=== PATIENT | female | born 1995 | race Caucasian/White ===

== ENCOUNTER 2019-08-27 11:40 | Outpatient (CLI) | payer MEDICAID, SELFPAY ==
--- NOTE | 2019-08-27 12:22 | US_ITS ---
WS: [id number] ULTRASOUND OB LIMITED TECHNIQUE: Limited ultrasound examination of the fetus. CLINICAL INFORMATION: GROWTH CHECK COMPARISON: None. FINDINGS: Cervix 5.0 cm Single interuterine gestation. Placental location is anterior. Placenta grade: 1 heart rate 141 BPM. Anatomy: BDP: 9.5 cm = 38w5d HC: 33.9 cm = 38w6d AC: 34.9 cm = 38w6d FEMUR LENGTH: 7.6 cm = 38w6d Estimated weight: 3603 g EGA by ultrasound: 38w6d KEV by ultrasound: 09/04/2019 US/US OB limited [id number] IMPRESSION: 1. Single intrauterine gestation. 2. Normal growth parameters. 3. weight at the 86th percentile. 4. Cervix measures 5.0 cm and is closed. 5. Normal amniotic fluid volume.
== END 2019-08-27 11:41 | disposition home or self-care (01) ==
LOC: RAD 11:44
PROVIDERS: Family Provider Family Medicine; PCP Family Medicine; Visit Provider Family Medicine
DX: O26.03 Excessive weight gain in pregnancy, third trimester (principal)
CPT/HCPCS: 76815

== ENCOUNTER 2019-09-03 18:00 | Inpatient (IN) | payer MEDICAID, SELFPAY ==
[2019-09-03] VITALS (57 sets, daily range): BP systolic 0–166; BP diastolic 0–94; PULSE 68–109; RESP 16; TEMP 36.7–37.2; O2SAT 98–100; BMI 30.7
[2019-09-03 18:49] LABS: Basophils # 0.1 10^3/uL (0.0-0.1); Basophils % 0.4 %; Eosinophils # 0.1 10^3/uL (0.0-0.8); Eosinophils % 0.6 %; Hematocrit 34.9 % (37.0-47.0); Hemoglobin 10.9 g/dL (11.5-15.3); Lymphocytes # 1.8 10^3/uL (0.8-4.8); Lymphocytes % 13.4 %; Mean Corpuscular HGB Conc 31.2 g/dL (30.0-36.0); Mean Corpuscular Hemoglobin 25.9 pg (28.0-34.0); Mean Corpuscular Volume 82.9 fL (81-99); Mean Platelet Volume 11.6 fL (7.4-10.4); Monocytes # 1.2 10^3/uL (0.2-0.9); Monocytes % 8.9 %; Neutrophils # 10.3 10^3/uL (1.8-7.7); Neutrophils % 75.3 %; Nucleated Red Blood Cells % 0 %; Platelet Count 362 10^3/cmm (130-400); Red Blood Count 4.21 10^6/uL (4.1-5.3); Red Cell Distribution Width 14.9 % (12.1-15.1); White Blood Count 13.6 10^3/uL (4.0-10.0)
[2019-09-03] MEDS: dextrose 5%-lactated ringers 1,000 ML 125 ML IV (19:00)
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
[2019-09-03] MEDS: acetaminophen 325 mg Tablet 650 MG PO (20:42)
[2019-09-03] MEDS: lactated ringers 1,000 ML 999 ML IV (20:43)
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
--- NOTE | 2019-09-03 21:36 | ANES.PROC ---
Anesthesia Procedures Procedure/Date: 09/03/19 Epidural: Time Out Performed: Yes Consents Signed: Procedure Consent, NPO Consent and No Consent Needed Consent: requested by attending/covering physician, from patient, risks and benefits reviewed and patient agrees to proceed Lumbar Level: L3-L4 Epidural position: sitting Epidural procedure: sterile prep of area (betadine), 1% lidocaine to numb the area (3ml), 18 g needle, neg for paresthesia, test dose given, 1.5% xylocaine 1:200k epi (5ml), 0.2% Ropivacaine bolus ml (5ml), placed PCEA, no systemic response, sterile dressing applied, L.U.D. no apparent complications and 0.2% Ropiavacaine @ mls/hr (10ml/hr) Additional Comments: Pt resting comfortably
[2019-09-03] MEDS: oxytocin 30 UNIT/500 ML BAG IV (22:57)
[2019-09-04] VITALS (126 sets, daily range): BP systolic 0–151; BP diastolic 0–91; PULSE 75–124; RESP 14–17; TEMP 36.6–37.1; O2SAT 98–100
[2019-09-04] MEDS: dextrose 5%-lactated ringers 1,000 ML 125 ML IV ×2 (05:36→11:15)
[2019-09-04] MEDS: ampicillin 2,000 MG in sodium chloride 0.9% (plus) 50 ML 100 MG IV (10:28)
--- NOTE | 2019-09-04 11:33 | PC.NURSE ---
Pushing While pushing it was noted that baby appears to be OP presentation, discussed with mother about trying different position changes with the peanut ball to help baby rotate and allow for easier pushing. Mother verbalized understanding.
--- NOTE | 2019-09-04 11:39 | PM.OBGYPN ---
POWER PLANT INSPECTOR Subjective Subjective: Interval history: Patient received her epidural last night and became comfortable...we began pitocin augmentation of her labor as she was still at 3cm and 50% effaced. She rested throughout the night and states that she is feeling some pressure this morning. Labor: Station: -2 Amniotic Membrane Status: Leaking Monitor Mode: External Contraction Pattern: Regular Status: Category l Vitals/I&O/Wt Last Vital Signs Temp 98.4 F 09/04/19 09:45 Pulse 86 09/04/19 11:35 Resp 15 09/04/19 03:00 BP 116/67 09/04/19 11:35 Pulse Ox 98 09/03/19 22:00 09/03/19 09/04/19 09/04/19 22:59 06:59 14:59 Intake Total 1000 / 1000 762.416 / 762.416 Balance 1000 / 1000 762.416 / 762.416 Weight last 48 hrs Weight 179 lb Physical Exam Narrative: EXAM NARRATIVE: FHT tracing is category 1 with normal baseline, moderate variability, accelerations and no decelerations. Contractions are every 2 minutes lasting upwards of 40-60 seconds. She is currently on 15 mu/minute of pitocin. Const: COMMON NORMALS: no apparent distress, oriented x3, healthy appearing, alert and well nourished : MANUAL OB EXAM: dilated (4.5), effaced (90%), station (-3) and other (palpable forebag) Neuro: COMMON NORMALS: oriented x3 SENSORIUM/ORIENTATION: Yes alert Data : 09/03/19 18:30 A&P Assessment and plan (1) Rupture of membranes with meconium present: amniotomy was performed on the forebag, and it was productive of a small amount of meconium stained fluid...within a few hours I called the labor room to begin antibiotics for prolonged rupture of membranes, and patient was 5-6cm dilated Status: Acute (2) SPROM (prolonged spontaneous rupture of membranes): starting prophylactic antibiotics...she remains afebrile Status: Acute Attestations Medical Necessity Statement*: as patient is laboring and has ruptured membranes, she continues to need inpatient hospitalization Coding Level of Care Code Acute Bilingual Spanish Inbound Sales for [facility] Diagnoses Rupture of membranes with meconium present O77.0 SPROM (prolonged spontaneous rupture of membranes) O42.90
[2019-09-04] MEDS: miSOPROStol 200 mcg Tablet 800 MCG PR (14:59)
[2019-09-04] MEDS: lidocaine 2% INJ 20 mL INJECTION (15:00)
--- NOTE | 2019-09-04 15:53 | PM.DELIVERY ---
 Delivery Note: Date of delivery: September 04, 2019 Pre-Delivery Course: Patient arrived yesterday late afternoon after having had her visit in the office during which time she reported spontaneous rupture of membranes productive of clear fluid at home at 130 yesterday afternoon. She underwent sterile speculum examination in the office at approximately 4:45 PM and had gross evidence of rupture of membranes and was 3 cm dilated, 20% effaced -3 station and candy every 2 minutes. She was sent to the labor room where we monitored her contractions and rechecked her cervix. Although she had been candy every 2 minutes with increasing intensity, her cervix had not changed by that evening. She opted for an epidural, received it and became comfortable. Therefore, we began Pitocin augmentation of her labor. This morning she was 4-1/2 cm dilated and 50% effaced and -3 station but had a palpable fore bag which was pretty sizable. She underwent amniotomy of the fore bag, and we discovered meconium stained fluid. Patient then was dilated to 5 to 6 cm within a few hours. We had begun antibiotics secondary to the prolonged rupture of membranes. She been dilated to complete at 11 AM. She tried a few practice pushes at 1107, and baby was thought to be occiput posterior at that time, and so we abandoned pushing and opted to have her labor down for a while. She tried a couple of position changes, and we resumed pushing at 1309. Delivery: Patient made steady progress from 1309 forward and delivered a viable male at 1437. Head was straight OA. Bulb suctioning was done upon delivery of baby's head, and nuchal cord was noted but upon delivery of baby's head he shot out exclusively. Therefore, his double nuchal cord was manually reduced upon delivery of his body. He also had bulb suctioning done upon delivery of his body and was rapidly placed on maternal abdomen while cord was clamped by myself and cut by myself. Baby was then taken to the warmer for further resuscitative measures. Gentle traction was placed on the cord, and intravenous Pitocin was begun in routine doses what retrospectively was just a free few minutes prior to delivery of the placenta. The placenta delivered at 1451 and appeared intact and was meconium stained. A gush of blood was then noted from the vaginal canal. Upon rapid inspection there was a distal midline posterior vaginal laceration which involved a blood vessel which was quickly clamped and then repair was done with 2-0 chromic in single layer fashion. Part way through that repair there was another gush of blood. A uterine exploration was done which revealed a boggy lower uterine segment and several large clots which were readily manually extracted. Fundus was firm and underwent routine massage and checks. Patient had by that time been given Cytotec 800 mcg rectally. Upon further inspection of the perineum and cervix there was noted a left superficial labial laceration/deep abrasion which was hemodynamically stable and anatomically well approximated and did not require repair. Patient did have some bruising of the distal vaginal kent and had vulvar swelling. Post-Delivery Status: Baby had Apgars of 4 at 1 minute and 8 at 5 minutes and required a brief stint of CPAP only in addition to his routine resuscitative measures. He weighed 349 0 g / 7 pounds 11 ounces and was 20-1/4 inches in length. Mother was stable with an estimated blood loss of 800 mL. A&P Assessment and plan (1) Spontaneous vaginal delivery: Routine orders Status: Acute (2) Rupture of membranes with meconium present: Status: Resolved (3) SPROM (prolonged spontaneous rupture of membranes): Status: Acute (4) Obstetric vaginal laceration without perineal laceration: Status: Acute Coding Level of Care Code Acute Business Specialist for [facility] Fw Diagnoses Spontaneous vaginal delivery O80 Rupture of membranes with meconium present O77.0 SPROM (prolonged spontaneous rupture of membranes) O42.90 Obstetric vaginal laceration without perineal laceration O71.4
[2019-09-04] MEDS: HYDROcodone-acetaminophen 5-325 mg Tablet PO (17:58)
[2019-09-04] MEDS: docusate sodium 100 mg Capsule PO (17:58)
--- NOTE | 2019-09-04 18:11 | PC.NURSE ---
Pt and all belongings transferred to room 203-2. Pt ambulated without difficulties. Oriented to room, no questions or concerns noted. Will continue to monitor.
[2019-09-05 00:45] VITALS: BP 104/63; PULSE 112; RESP 16; TEMP 36.8
[2019-09-05 03:41] LABS: Hematocrit 28.6 % (37.0-47.0); Hemoglobin 8.8 g/dL (11.5-15.3); Mean Corpuscular HGB Conc 30.8 g/dL (30.0-36.0); Mean Corpuscular Hemoglobin 26.3 pg (28.0-34.0); Mean Corpuscular Volume 85.6 fL (81-99); Mean Platelet Volume 11.4 fL (7.4-10.4); Platelet Count 265 10^3/cmm (130-400); Red Blood Count 3.34 10^6/uL (4.1-5.3); Red Cell Distribution Width 15.4 % (12.1-15.1); White Blood Count 16.9 10^3/uL (4.0-10.0)
[2019-09-05] MEDS: HYDROcodone-acetaminophen 5-325 mg Tablet PO ×2 (07:17→16:54)
[2019-09-05] MEDS: prenatal vitamin Capsule 1 CAP PO (09:38)
[2019-09-05] MEDS: docusate sodium 100 mg Capsule PO (09:39)
[2019-09-05 09:41] VITALS: BP 119/77; PULSE 130; RESP 18; TEMP 36.7; O2SAT 98
--- NOTE | 2019-09-05 10:16 | PM.OBGYDC ---
Discharge Providers ASSEMBLER FINGER BUFFS Date of Admission: 09/03/19 18:00 Date of Discharge: 09/11/19 Attending Provider at Admission: Erin Lopez MD Attending Provider at Discharge: Erin Lopez MD Primary Care Provider: Erin Lopez MD Diagnoses at Discharge Discharge Diagnosis (1) Rupture of membranes with meconium present: Status: Resolved (2) SPROM (prolonged spontaneous rupture of membranes): Status: Acute (3) Spontaneous vaginal delivery: Status: Acute (4) Obstetric vaginal laceration without perineal laceration: Status: Acute (5) Anemia, : Status: Acute Reason for Visit Reason for Visit: Reason For Visit: ab pain Hospital Course Hospital Course: Patient was sent over from her regular obstetric clinical visit on 09/03/2019 in the 1700-hour as she had reported spontaneous rupture of membranes productive of clear fluid at approximately 1330 that day. She was candy every 2 to 3 minutes, and during her office visit there was evidence of gross rupture of membranes, as there was fluid pooling on the lower blade of the sterile speculum and it was nitrazine positive. Patient was also found to be 3 cm dilated 20% effaced and -3 station. She was monitored and had increasing frequency and intensity of contractions in the OB department. However, upon recheck that evening she had no cervical change with the exception of 50% effacement. Therefore, Pitocin was begun to augment her labor in light of the spontaneous rupture of membranes which had been approximately 9 hours prior to that at this point. Patient opted for an epidural, received it and became comfortable and slept and contracted throughout the night. The morning of 09/04/2019 she was 4-1/2 cm dilated, 90% effaced and -2 station and a palpable fore bag was noted. Pitocin was at 15 milliunits/min, and contractions were every 1-1/2 to 2-1/2 minutes and strong. The fore bag was ruptured revealing meconium stained fluid of moderate amount. Patient then fairly quickly dilated to a 5-6. Since her membranes had been ruptured more than 18 hours we began antibiotics per the group B strep protocol. Patient continued to dilate fairly readily and was completely dilated by 11 AM. As the baby's head was felt to be occiput posterior and she was 0 station we elected, after a few tests pushes were not very efficient, to have her labor down which she did for over an hour. We then began the true active portion of the second stage of her labor. After an hour and a half of steady pushing patient delivered a viable male weighing 7 pounds 11 ounces. Please refer to delivery note for details. Patient sustained a first-degree midline distal vaginal laceration which involved a blood vessel. This was sutured as quickly as possible with 2-0 chromic in a running stitch single layer. She had a second gushing of blood which, upon uterine exploration, revealed several clots which were manually extracted. Patient was also given Cytotec 800 mcg per rectum. She sustained approximately 800 mL blood loss during this time but remained stable throughout this time. Placenta delivered uneventfully, and she did have a left labial abrasion which did not require suturing. Discharge Summary: Today, day 1 she is feeling good with some small clots and some cramping with breast-feeding. She is otherwise well. She plans on hormonal contraception started at her 6-week visit. Information Peripartum Data: Delivery Method: Vaginal Physical Exam Const: COMMON NORMALS: no apparent distress, oriented x3, no limitations, healthy appearing, alert and well nourished Neck/C-Spine: COMMON NORMALS: no JVD Resp: COMMON NORMALS: normal respiratory effort, no retractions, no use of accessory muscles and clear to auscultation bilaterally AUSCULTATION: clear to auscultation bilaterally Cardio: COMMON NORMALS: no JVD, regular rate, regular rhythm, S1 normal heart sound, S2 normal heart sound, no gallops, no clicks, no murmurs, no rub and peripheral pulses 2+ throughout RATE: regular rate RHYTHM: regular rhythm HEART SOUNDS: S1 normal and S2 normal PERIPHERAL PULSES: pulses 2+ throughout : UTERUS PALPATION: Yes other OB Extremity: COMMON NORMALS: no pedal edema Neuro: COMMON NORMALS: oriented x3 SENSORIUM/ORIENTATION: Yes alert Discharge Data Data Completed and Pending: Pending at discharge Category Date Time Status Complete Blood Co unt w/Auto Routine Lab 09/05/19 14:00 Ordered Labs from last 24 hours 09/05/19 03:10 WBC 16.9 H RBC 3.34 L Hgb 8.8 L Hct 28.6 L MCV 85.6 MCH 26.3 L MCHC 30.8 RDW 15.4 H Plt Count 265 MPV 11.4 H Vitals: Last Vital Signs Temp 98.0 F 09/05/19 09:41 Pulse 130 H 09/05/19 09:41 Resp 18 09/05/19 09:41 BP 119/77 09/05/19 09:41 Pulse Ox 98 09/05/19 09:41 Discharge Plan Discharge Patient Disposition: Home, Self-Care Condition: Stable Prescriptions: New ibuprofen 800 mg Tablet 800 mg PO TID Qty: 40 RF: 0 Continued 1 tab PO DAILY RF: 0 Discontinued Pepcid 1 tab PO DAILY RF: 0 Discharge Orders: Discharge Order (Routine); Ordered 09/05/19 Ordered By: Erin Lopez Referrals: Erin Lopez MD [Primary Care Provider] - 6 Weeks (Your 6 week post appointment is with Dr. Lopez on October 18, 2019 at 9:30am. ) Discharge Diet: Usual diet Discharge Activity: Limit activity as instructed Patient Instructions: Hydrocodone/Acetaminophen (By mouth), Ibuprofen (By mouth), Vitamins (By mouth), Depression (GEN), Perineal Care (DC), Your Baby (DC), and the Working Mom (DC), Expression, Collection and Storage of Breastmilk (DC), How to Hold and Breastfeed Your Baby (DC), and Nipple Soreness (DC), Breast Fullness Versus Breast Engorgement (DC), and Plugged Ducts (DC), How to Increase Your Milk Supply (DC), How to Tell if Your Baby is Getting Enough Breast Milk (DC), and Your Diet (DC), Bleeding (DC), OB Discharge Report, OB Food/Drug Interaction Guide, OB Care at Home, OB Home Care, OB Proud Parent Packet, OB Vaginal Deliveries, Abnormal Bleeding Discharge Date/Time: 09/05/19 21:00 Discharge Attestations ASSEMBLER FINGER BUFFS Time Spent in Discharge Care*: greater than 30 min Specific Discharge Activities: Specific discharge activities: educating patient, documenting/other paperwork and evaluating patient/reviewing data Status at Discharge: Cognitive status at discharge: cognitively intact, Behavioral status at discharge: cooperative, Functional status at discharge: independent ambulation Overall status at discharge: patient is progressing back to baseline Coding Level of Care Code Acute Radiologic Technology Instructor for Chg Fwd Exam Detailed Diagnoses Rupture of membranes with meconium present O77.0 SPROM (prolonged spontaneous rupture of membranes) O42.90 Spontaneous vaginal delivery O80 Obstetric vaginal laceration without perineal laceration O71.4 Anemia, O90.81
[2019-09-05] MEDS: famotidine 20 mg Tablet PO (12:12)
[2019-09-05 14:36] LABS: Basophils # 0.1 10^3/uL (0.0-0.1); Basophils % 0.3 %; Eosinophils # 0.2 10^3/uL (0.0-0.8); Eosinophils % 1.2 %; Hematocrit 28.3 % (37.0-47.0); Hemoglobin 8.9 g/dL (11.5-15.3); Lymphocytes # 2.3 10^3/uL (0.8-4.8); Lymphocytes % 15.6 %; Mean Corpuscular HGB Conc 31.4 g/dL (30.0-36.0); Mean Corpuscular Hemoglobin 26.2 pg (28.0-34.0); Mean Corpuscular Volume 83.2 fL (81-99); Mean Platelet Volume 11.2 fL (7.4-10.4); Monocytes # 1.6 10^3/uL (0.2-0.9); Monocytes % 10.6 %; Neutrophils # 10.4 10^3/uL (1.8-7.7); Neutrophils % 71.1 %; Nucleated Red Blood Cells % 0 %; Platelet Count 269 10^3/cmm (130-400); Red Cell Distribution Width 15.2 % (12.1-15.1); White Blood Count 14.6 10^3/uL (4.0-10.0)
[2019-09-05 21:00] VITALS: BP 113/69; PULSE 93; RESP 18; TEMP 36.4; O2SAT 98
--- NOTE | 2019-09-05 21:23 | PC.NURSE ---
Patient discharged but rooming in with patient baby.
== END 2019-09-05 21:00 | disposition home or self-care (01) | DRG 806 ==
LOC: OBGYN 09-04 07:37 → OPOB 09-04 07:37
PROVIDERS: Admitting Provider Family Medicine; Family Provider Family Medicine; PCP Family Medicine; Visit Provider Family Medicine
DX: O69.2XX0 Labor and delivery complicated by other cord entanglement, with compression, not applicable or unspecified (principal); O71.4 Obstetric high vaginal laceration alone; Z37.0 Single live birth; O77.0 Labor and delivery complicated by meconium in amniotic fluid; Z3A.40 40 weeks gestation of pregnancy; Z77.22 Contact with and (suspected) exposure to environmental tobacco smoke (acute) (chronic); O90.81 Anemia of the puerperium; D64.9 Anemia, unspecified
CPT/HCPCS: 12345; 36415; 59025; 59409; 85025; 85027; J0290; J2001; J2795

== ENCOUNTER 2021-10-05 12:44 | Outpatient (CLI) | payer BC, MEDICAID, SELFPAY ==
--- NOTE | 2021-10-05 | XR_ITS ---
WS: [id number] FOOT LEFT TECHNIQUE: 3 views of the left foot CLINICAL INFORMATION: LEFT FOOT PAIN COMPARISON: None. FINDINGS: Soft tissue edema. No evidence of acute fracture or dislocation. Normal tarsal metatarsal alignment. Normal calcaneus. Normal visualized talar dome. XR/XR foot LT min 3V* [id number] IMPRESSION: Soft tissue edema. No visualized fractures.
== END 2021-10-05 12:45 | disposition home or self-care (01) ==
LOC: RADOUTREAD 10-06 12:54
PROVIDERS: Family Provider Family Medicine; PCP Family Medicine; Visit Provider Nurse Practitioner Family
DX: M79.672 Pain in left foot (principal); W22.03XA Walked into furniture, initial encounter; Y92.89 Other specified places as the place of occurrence of the external cause; Y99.0 Civilian activity done for income or pay
CPT/HCPCS: 73630

== ENCOUNTER 2024-08-16 22:44 | Emergency (ER) | payer MEDICAID, SELFPAY ==
[2024-08-16 22:45] VITALS: BP 114/74; PULSE 85; RESP 20; TEMP 36.3; O2SAT 100; BMI 27.4
[2024-08-16 22:51] VITALS: PULSE 80; RESP 18; O2SAT 99
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
[2024-08-17 00:05] LABS: Basophils # 0.1 10^3/uL (0.0-0.1); Basophils % 0.5 %; Eosinophils # 0.3 10^3/uL (0.0-0.8); Eosinophils % 1.7 %; Hematocrit 41.2 % (36-47); Lymphocytes # 1.6 10^3/uL (0.8-4.8); Lymphocytes % 9.7 %; Mean Corpuscular HGB Conc 32.3 g/dL (30-55); Mean Corpuscular Hemoglobin 28.5 pg (27-33); Mean Corpuscular Volume 88.2 fl (85-98); Mean Platelet Volume 10.8 fL (7.4-10.4); Monocytes # 0.9 10^3/uL (0.2-0.9); Monocytes % 5.6 %; Neutrophils # 13.82 10^3/uL (1.8-7.7); Neutrophils % 81.9 %; Nucleated Red Blood Cells % 0 %; Platelet Count 331 10^3/cmm (157-399); Red Blood Count 4.67 10^6/uL (3.85-5.65); White Blood Count 16.87 10^3/uL (3.29-11.43)
[2024-08-17 00:14] LABS: HCG, Serum Qual Positive (Negative)
[2024-08-17 00:18] LABS: Alanine Aminotransferase 18 U/L (0-33); Albumin Level 4.3 g/dL (3.5-5.2); Alkaline Phosphatase 71 U/L (35-105); Anion Gap 14.8 (5-19); Aspartate Amino Transferase 16 U/L (0-32); Blood Urea Nitrogen 11 mg/dL (6-20); Calcium 8.9 mg/dL (8.5-10.5); Carbon Dioxide 24 mmol/L (22-29); Chloride 106 mmol/L (98-107); Creatinine Clr Calc Pharmacy 159.1778; Globulin 3.5 g/dL (1.3-4.6); Glomerular Filtration Rate 143.9 mL/min (90-130); Glucose 99 mg/dL (65-115); Osmolality Calculated 291 mOsm/kg (285-295); Potassium 3.8 mmol/L (3.5-5.1); Sodium 141 mmol/L (136-145); Total Bilirubin 0.3 mg/dL (0.15-1.2); Total Protein 7.8 g/dL (6.6-8.7)
--- NOTE | 2024-08-17 07:10 | DCPLANNER ---
messaged [facility] for er f/u
== END 2024-08-17 01:11 | disposition home or self-care (01) ==
PROVIDERS: Emergency Provider Physician Assistant; PCP Family Medicine
DX: O03.9 Complete or unspecified spontaneous abortion without complication (principal)
CPT/HCPCS: 36415; 80053; 84702; 84703; 85025; 86900; 99283; E0352

== ENCOUNTER → 2024-08-20 09:08 | Outpatient (BNVA) | payer MEDICAID, SELFPAY | PROVIDERS: PCP Family Medicine; Visit Provider Nurse Practitioner Women's Health | DX: O03.9 Complete or unspecified spontaneous abortion without complication (principal) | CPT/HCPCS: 84702 ==

== ENCOUNTER → 2024-08-31 09:43 | Outpatient (BNVA) | payer MEDICAID, SELFPAY | PROVIDERS: PCP Family Medicine; Visit Provider Nurse Practitioner Women's Health | DX: O03.9 Complete or unspecified spontaneous abortion without complication (principal) | CPT/HCPCS: 84702 ==

== ENCOUNTER → 2024-09-07 09:28 | Outpatient (BNVA) | payer MEDICAID, SELFPAY | PROVIDERS: PCP Family Medicine; Visit Provider Nurse Practitioner Women's Health | DX: O03.9 Complete or unspecified spontaneous abortion without complication (principal) | CPT/HCPCS: 84702 ==

== ENCOUNTER → 2024-09-12 14:26 | Outpatient (BNVA) | payer MEDICAID, SELFPAY | PROVIDERS: PCP Family Medicine; Visit Provider Nurse Practitioner Women's Health | DX: O03.9 Complete or unspecified spontaneous abortion without complication (principal) | CPT/HCPCS: 84702 ==

== ENCOUNTER → 2025-02-28 15:29 | Outpatient (BNVA) | payer MEDICAID, SELFPAY | PROVIDERS: PCP Family Medicine; Visit Provider Nurse Practitioner Women's Health | DX: Z30.9 Encounter for contraceptive management, unspecified (principal) | CPT/HCPCS: 81025 ==